=== PATIENT | male | born 1980 | race African-American/Black ===

== ENCOUNTER 2024-05-17 01:20 | Emergency (ER) | payer SELFPAY ==
[2024-05-17] MEDS ORDERED: Amoxicillin/Potassium Clav 875 MG TAB ONE (02:01)
[2024-05-17] MEDS ORDERED: Lidocaine 1% w/Epinephrine 1:100K 20 ML VIAL ONE (02:02)
[2024-05-17] MEDS ORDERED: Bupivacaine PF 0.5% 30 ML VIAL ONE (02:02)
== END 2024-05-17 02:20 | disposition home or self-care (01) ==
LOC: MADERS 01:20
DX: K04.7 Periapical abscess without sinus (principal); F17.210 Nicotine dependence, cigarettes, uncomplicated
CPT/HCPCS: 10060; J0665